=== PATIENT | male | born 1980 | race Caucasian/White ===

== ENCOUNTER → 2017-07-31 | Outpatient (CLI) | payer BC ==
--- NOTE | 2017-07-31 10:57 | DIAGNOSTIC IMAGING REPORT ---
R FOOT MIN 3 VIEWS ROUTINE HISTORY: 36 years-old Male M79.671,PAIN IN RIGHT FOOT acute right-sided foot pain, most pronounced laterally for 3 days. No reported trauma. COMPARISON: None available. TECHNIQUE: 3 views of the right foot. FINDINGS: There is mild forefoot soft tissue swelling both medially and laterally. Minimal marginal spurring is noted at the first MTP joint and also involving the hallux sesamoids with the adjacent metatarsal head. No acute fracture or dislocation is identified. No stress fracture. No opaque foreign body. IMPRESSION: 1. Mild forefoot soft tissue swelling without acute bony abnormality identified. 2. Minimal degenerative changes of the first MTP joint. The above report was generated using voice recognition software. It may contain grammatical, syntax or spelling errors. Electronically signed by: Jim Obando M.D. 07/31/2017 10:56 AM Dictated Date/Time: 07/31/2017 10:54 AM
== END | disposition home or self-care (01) ==
LOC: C.RAD 10:33
PROVIDERS: ATTEND Nurse Practitioner
DX: M79.671 Pain in right foot (principal)

== ENCOUNTER 2021-04-07 14:16 | Observation (INO) ==
--- NOTE | 2021-04-07 15:16 | XRay Report ---
XR chest 1V portable CLINICAL HISTORY: Atypical chest pain COMPARISON STUDY: No previous studies for comparison. FINDINGS: The cardiac and mediastinal contours are normal. There is no evidence of focal pulmonary co nsolidation. There is no evidence of failure. No pleural effusions are visualized.[ IMPRESSION: No active disease in the chest. ACT 112: Negative or not required by law. Electronically signed by: Abelino Ríos M.D. 04/07/2021 3:14 PM
--- NOTE | 2021-04-07 15:18 | Electrocardiogram Report ---
Test Reason : Blood Pressure : / mmHG Vent. Rate : 100 BPM Atrial Rate : 100 BPM P-R Int : 150 ms QRS Dur : 100 ms QT Int : 360 ms P-R-T Axes : 071 069 -04 degrees QTc Int : 464 ms Normal sinus rhythm Left atrial enlargement ST depression in Anterior leads , consider ischemia Abnormal ECG No previous ECGs available Confirmed by Rory Carr ([id number]) on 04/07/2021 3:18:10 PM Referred By: Confirmed By:Rory Carr
[2021-04-07] MEDS ORDERED: SODIUM CHLORIDE 0.9% 1000ML 1,000 ML IV ONE (15:20)
--- NOTE | 2021-04-07 15:24 | Emergency Department Note ---
Impression & Plan Paresthesias, Right calf pain, Abnormal EKG, Hypokalemia, Breath shortness ED Provider Note NAME: ISSA FINNEY AGE: 40 SEX: M : 1980 ARRIVES VIA: Walk-In INFORMANT: Patient ED PROVIDER(S): Darrius Parry DO CHIEF COMPLAINT: weak HPI: Patient is a 40-year-old male who presents to the ER for shortness of breath, paresthesias in the upper and lower extremities and weakness. He has been having pain in his right lower extremity which has been present for the past 2 to 3 weeks as he recently started running again. He notes that today he was driving he became short of breath. This lasted for a short period of time about a minute and then resolved. He had paresthesias in the bilateral upper and lower extremities. He has had an ultrasound/duplex of the right lower extremity which was negative as well as ABIs which was unremarkable. He notes h e felt cool and clammy throughout. He denies all other complaints at this time. He denies any chest pain or heaviness. Shortness of breath has completely resolved. Patient denies diabetes, hypertension, hyperlipidemia, CAD, history of sudden at a young age, and smoking. Patient denies swelling of calves, recent trips, history of immobilization or recent surgery, prior history of DVT, hemoptysis, and history of malignancy. ROS: See above HPI for pertinent positives & negatives. A total of 10 systems reviewed and were otherwise negative. PAST MEDICAL HISTORY:See Below PAST SURGICAL HISTORY:See Below FAMILY HISTORY:See Below SOCIAL HISTORY:See Below HOME MEDICATIONS:See Below ALLERGIES:See Below VITALS:See Below PHYSICAL EXAMINATION: GENERAL: Sitting up in bed, alert, well appearing, well nourished, no distress, non-toxic EYE EXAM: normal conjunctiva. OROPHARYNX: no exudate, no erythema, lips, buccal mucosa, and tongue normal and mucous membranes are moist NECK: supple, no nuchal rigidity, no adenopathy, non-tender LUNGS: Clear to auscultation. Normal chest wall mechanics HEART: no murmurs, S1 normal and S2 normal ABDOMEN: abdomen soft, non-tender, normo-active bowel sounds, no masses, no rebound or guarding. BACK: Back is symmetrical on inspection and there is no deformity, no midline tenderness, no CVA tenderness. SKIN: no rashes and no bruising UPPER EXTREMITIES: upper extremities are grossly normal. LOWER EXTREMITIES: No pitting edema. Calves are equal bilateral NEURO EXAM: Normal sensorium, cranial nerves II-XII grossly intact, normal speech, no gross weakness of arms, no gross weakness of legs. MEDICAL DECISION MAKING: Patient is a 40-year-old male who presents the ER for shortness of breath associate with paresthesias. IV was established blood work was obtained. He is found to be slightly hypertensive and mildly tachycardic. Labs show no significant leukocytosis or anemia. D-dimer was negative and will not be pu rsued in the low risk patient. BMP with mild hypokalemia slightly elevated chloride. LFTs bilirubin was unremarkable. Lipase is normal. Troponin was negative. Covid was negative. Chest x-ray unremarkable. EKG showed diffuse ST wave changes. Discussed with cardiology and unable to stress tonight. Following this discussed with hospitalist for observation. Triage Nursing notes reviewed. Limited review of prior medical records performed Vital Signs: reviewed and remarkable for tachy Differential diagnosis: Differential diagnoses includes but is not limited to pneumonia, bronchitis, COPD/Asthma exacerbation, pneumothorax, pulmonary embolism, congestive heart failure, acute coronary syndrome ER treatment provided: See below Diagnostics interpreted by me: ECG: Sinus tachycardia rate of 100 Normal axis No PVCs ST depressions in V3 through V6 as well as nonspecific ST wave changes in the inferior leads QTC 464 Cardiac Monitoring: An order was placed for continuous cardiac monitoring. The monitor shows a rate of 95 with sinus rhythm. Laboratory studies: As stated above and show below. Imaging studies: Portable AP upright 1 view of the chest shows no focal infiltrate or pne umothorax Consultation(s): Discussed with Tommy Carr who was unable to stress him and recommended admission to the hospitalist Discussed with Dr. Ayon for further evaluation Procedures: none Critical Care: None Past Med/Surg History Surgical History (Updated 04/02/21 @ 12:02 by Shruti Yang) No history of previous surgery Family History (Updated 04/02/21 @ 12:03 by Shruti Yang) Uncle FH: kidney cancer Grandfather (Maternal) Prostate cancer Other Colorectal cancer Denies family history of Ovarian cancer Breast cancer Social History (Updated 04/02/21 @ 12:04 by Shruti Yang) Smoking Status: Never smoker Hx Alcohol Use: No Hx Substance Use: No Preferred Language: Macedonian Visual Impairment: No Limitations Hearing Ability: Normal marital status: Single current occupational status: employed Feels Safe at Home: Yes Dental Care, Regularly: Yes Physical Activity Frequency: 3-4 Times per Week Seatbelt Use: always Allergies Allergies Allergy/AdvReac Type Severity Reaction Status Date / Time No Known Allergies Allergy Unverified 04/07/21 15:25 Home Meds Home Medications Medication Instructions Recorded Confirmed No Known Home Medications 04/02/21 04/07/21 Results & Data (ED) Vital Signs Vital Signs - 24 hr 04/07/21 14:23 04/07/21 17:53 Temperature 36.2 C L Temperature Source Temporal Artery Scan Pulse Rate 106 H Pulse Rate [Left Apical] 93 H Pulse Rhythm Regular Pulse Rhythm [Left Apical] Regular Pulse Strength Normal Pulse Strength [Left Apical] Normal Respiratory Rate 20 21 Respiratory Effort / Characteristics Non-Labored Spontaneous Non-Labored Spontaneous Respiratory Depth Normal Normal Respiratory Pattern Regular Regular Blood Pressure 152/93 H Blood Pressure [Right Arm] 154/91 H Blood Pressure Mean 112 Blood Pressure Mean [Right Arm] 112 Blood Pressure Position Sitting Blood Pressure Position [Right Arm] Sitting Pulse Oximetry 99 97 Oxygen Delivery Method Room Air Room Air Sepsis Recent Fever Within 48 Hours No Sepsis New/Unexplained Change in Mental Status No Sepsis Action Taken by Nursing No Action Required Laboratory Data Result diagrams: 04/07/21 15:19 04/07/21 15:19 Lab Results 04/07/21 04/07/21 04/07/21 Range/Units 15:19 15:19 15:19 WBC 6.03 (4.8-10.8) K/uL RBC 5.34 (4.7-6.1) M/uL Hgb 15.5 (14.0-18.0) g/dL Hct 44.2 (42-52) % MCV 82.8 (80-100) fL MCH 29.0 (25-34) pg MCHC 35.1 (32-36) g/dL RDW Std Deviation 37.6 (36.4-46.3) fL RDW Coeff of Mehul 12.6 (11.5-14.5) % Plt Count 211 (130-400) K/uL MPV 9.7 (7.4-10.4) fL Immature Gran % (Auto) 0.3 % Neut % (Auto) 67.2 % Lymph % (Auto) 26.2 % [place] % (Auto) 5.1 % Eos % (Auto) 1.0 % Baso % (Auto) 0.2 % Neut # (Auto) 4.05 (1.4-6.5) K/uL Lymph # (Auto) 1.58 (1.2-3.4) K/uL [place] # (Auto) 0.31 (0.11-0.59) K/uL Eos # (Auto) 0.06 (0-0.5) K/uL Baso # (Auto) 0.01 (0-0.2) K/uL Immature Gran # (Auto) 0.02 (0.00-0.02) K/uL APTT 26.3 (21.0-31.0) Seconds PTT Ratio 1.0 D-Dimer < 190 (0-500) ug/L FEU Sodium 140 (136-145) mmol/L Potassium 3.3 L (3.5-5.1) mmol/L Chloride 108 H (98-107) mmol/L Carbon Dioxide 28 (21-32) mmol/L Anion Gap 4.0 (3-11) BUN 11 (7-18) mg/dl Creatinine 0.83 (0.6-1.4) mg/dl Est Cr Clr Drug Dosing 132.8 ml/min Est GFR ( Amer) 126.7 ml/min Est GFR (Non-Af Amer) 109.3 ml/min BUN/Creatinine Ratio 12.8 (10-20) Glucose 91 (70-99) mg/dl Calcium 8.4 L (8.5-10.1) mg/dl Total Bilirubin 0.6 (0.2-1) mg/dl AST 24 (15-37) U/L ALT 84 H (12-78) U/L Alkaline Phosphatase 101 (45-117) U/L Troponin I < 0.015 (0-0.045) ng/ml Total Protein 7.5 (6.4-8.2) gm/dl Albumin 4.3 (3.4-5.0) gm/dl Globulin 3.2 (2.5-4.0) gm/dl Albumin/Globulin Ratio 1.3 (0.9-2) Lipase 97 (73-393) U/L COVID-19 Eval Order SARS-CoV-2 (PCR) (Negative) 04/07/21 04/07/21 Range/Units 17:05 17:05 WBC (4.8-10.8) K/uL RBC (4.7-6.1) M/uL Hgb (14.0-18.0) g/dL Hct (42-52) % MCV (80-100) fL MCH (25-34) pg MCHC (32-36) g/dL RDW Std Deviation (36.4-46.3) fL RDW Coeff of Mehul (11.5-14.5) % Plt Count (130-400) K/uL MPV (7.4-10.4) fL Immature Gran % (Auto) % Neut % (Auto) % Lymph % (Auto) % [place] % (Auto) % Eos % (Auto) % Baso % (Auto) % Neut # (Auto) (1.4-6.5) K/uL Lymph # (Auto) (1.2-3.4) K/uL [place] # (Auto) (0.11-0.59) K/uL Eos # (Auto) (0-0.5) K/uL Baso # (Auto) (0-0.2) K/uL Immature Gran # (Auto) (0.00-0.02) K/uL APTT (21.0-31.0) Seconds PTT Ratio D-Dimer (0-500) ug/L FEU Sodium (136-145) mmol/L Potassium (3.5-5.1) mmol/L Chloride (98-107) mmol/L Carbon Dioxide (21-32) mmol/L Anion Gap (3-11) BUN (7-18) mg/dl Creatinine (0.6-1.4) mg/dl Est Cr Clr Drug Dosing ml/min Est GFR ( Amer) ml/min Est GFR (Non-Af Amer) ml/min BUN/Creatinine Ratio (10-20) Glucose (70-99) mg/dl Calcium (8.5-10.1) mg/dl Total Bilirubin (0.2-1) mg/dl AST (15-37) U/L ALT (12-78) U/L Alkaline Phosphatase (45-117) U/L Troponin I (0-0.045) ng/ml Total Protein (6.4-8.2) gm/dl Albumin (3.4-5.0) gm/dl Globulin (2.5-4.0) gm/dl Albumin/Globulin Ratio (0.9-2) Lipase (73-393) U/L COVID-19 Eval Order Covid19 at [facility] SARS-CoV-2 (PCR) NEGATIVE (Negative) Administered Medications Discontinued Medications Sodium Chloride (Nss 1000ml) 1,000 mls @ 999 mls/hr IV .Q1H1M ONE Stop: 04/07/21 16:20 Last Infusion: 04/07/21 16:58 Dose: 0 mls/hr Documented by: [id number] Admin: 04/07/21 15:49 Dose: 999 mls/hr Documented by: [id number] Potassium Chloride (Potassium Chloride Crtab 20 Meq Tabcr) 40 meq PO NOW STA Stop: 04/07/21 17:28 Last Admin: 04/07/21 17:51 Dose: 40 meq Documented by: [id number] Imaging Data Radiologist's Impression: Chest X-Ray 04/07/21 14:59 XR chest 1V portable CLINICAL HISTORY: Atypical chest pain COMPARISON STUDY: No previous studies for comparison. FINDINGS: The cardiac and mediastinal contours are normal. There is no evidence of focal pulmonary consolidation. There is no evidence of failure. No pleural effusions are visualized.[ IMPRESSION: No active disease in the chest. ACT 112: Negative or not required by law. Electronically signed by: Abelino Ríos M.D. 04/07/2021 3:14 PM Discharge Plan Visit Data Chief Complaint: Swelling/Edema to Extremity Stated Complaint: POSSIBLE BLOOD CLOT ED Provider: Darrius Parry Discharge Problem: Paresthesias, Right calf pain, Abnormal EKG, Hypokalemia, Breath shortness Forms Stand Alone Forms: My [facility] Prescriptions Prescriptions: No Action No Known Home Medications RF: 0
[2021-04-07 16:01] LABS: Basophils # (auto) 0.01 K/uL (0-0.2); Basophils % (auto) 0.2 %; Eosinophils # (auto) 0.06 K/uL (0-0.5); Hematocrit (blood only) 44.2 % (42-52); Hemoglobin 15.5 g/dL (14.0-18.0); Immature Granulocytes # (auto) 0.02 K/uL (0.00-0.02); Immature Granulocytes % (auto) 0.3 %; Lymphocytes # (auto) 1.58 K/uL (1.2-3.4); Lymphocytes % (auto) 26.2 %; Mean Corpuscular Hgb Conc 35.1 g/dL (32-36); Mean Corpuscular Volume 82.8 fL (80-100); Mean Platelet Volume 9.7 fL (7.4-10.4); Monocytes # (auto) 0.31 K/uL (0.11-0.59); Monocytes % (auto) 5.1 %; Neutrophils # (auto) 4.05 K/uL (1.4-6.5); Neutrophils % (auto) 67.2 %; Platelet Count 211 K/uL (130-400); RDW Coefficient of Variation 12.6 % (11.5-14.5); RDW Standard Deviation 37.6 fL (36.4-46.3); Red Blood Count 5.34 M/uL (4.7-6.1); White Blood Count 6.03 K/uL (4.8-10.8)
[2021-04-07 16:10] LABS: D Dimer < 190 ug/L FEU (0-500); Partial Thromboplastin Time 26.3 Seconds (21.0-31.0)
[2021-04-07 16:14] LABS: Alanine Aminotransferase 84 U/L (12-78); Albumin Level 4.3 gm/dl (3.4-5.0); Aspartate Aminotransferase 24 U/L (15-37); BUN Creatinine Ratio 12.8 (10-20); Blood Urea Nitrogen 11 mg/dl (7-18); Calcium 8.4 mg/dl (8.5-10.1); Carbon Dioxide 28 mmol/L (21-32); Chloride 108 mmol/L (98-107); Creatinine Clr Calc Pharmacy 132.8 ml/min; Est GFR (African American) 126.7 ml/min; Est GFR (Non-African American) 109.3 ml/min; Glucose 91 mg/dl (70-99); Lipase 97 U/L (73-393); Potassium 3.3 mmol/L (3.5-5.1); Sodium 140 mmol/L (136-145)
[2021-04-07 16:20] LABS: Albumin Globulin Ratio 1.3 (0.9-2); Alkaline Phosphatase 101 U/L (45-117); Bilirubin,Total 0.6 mg/dl (0.2-1); Globulin 3.2 gm/dl (2.5-4.0); Total Protein 7.5 gm/dl (6.4-8.2); Troponin I < 0.015 ng/ml (0-0.045)
[2021-04-07] MEDS ORDERED: POTASSIUM CHLORIDE CRTAB 20 MEQ TABCR PO STA (17:27)
--- NOTE | 2021-04-07 17:38 | History & Physical Report ---
Date of Service April 07, 2021 Assessment & Plan (1) Abnormal EKG: EKG with ST depressions V3-V5. The patient will be admitted to telemetry for serial cardiac enzymes, serial EKG's, cardiac rhythm monitoring and a 2-D echocardiogram with Dopplers. Aspirin 81 mg daily Vital signs with pulse 106 and blood pressure 152/93. If persists, will start beta-ivet, metoprolol tartrate 25 mg p.o. twice daily. Review outpatient laboratories and studies Consult cardiology Present on Admission?: Yes (2) Hypokalemia: Place with Klor-Con 40 mEq p.o. May explain abnormal body sensations is experiencing Present on Admission?: Yes (3) Paresthesias: Follow for symptom recovery as replace potassium Present on Admission?: Yes History of Present Illness Chief Complaint: 9 the patient presents to the emergency department with a sensation of of tingling and abnormal sensation over his body into his extremities that happened as he was driving home today. Primary Care Provider: Freddy Ortega MD The patient is a 40-year-old male with no significant past medical history who presents to the emergency department with complaint of right calf pain that began about 3 weeks ago when he resumed exercise, took off her weight, and then it recurred again. He had venous Dopplers performed recently as outpatient setting which were negative. He reports having outpatient laboratories done as well today, possibly home he developed above symptoms and presents to the ED for assessment. He reports he has gained 20 pounds over the past year due to state- mandated COVID-19 inactivity. He did have his first vaccination 1/2 months ago and a second was collapsing. He himself has not had COVID-19 infection Allergies Allergy/AdvReac Type Severity Reaction Status Date / Time No Known Allergies Allergy Unverified 04/07/21 15:25 Home Medications Medication Instructions Recorded Confirmed Type No Known Home Medications 04/02/21 04/07/21 History Past Med/Surg History Surgical History (Updated 04/02/21 @ 12:02 by Shruti Yang) No history of previous surgery Family History (Updated 04/02/21 @ 12:03 by Shruti Yang) Uncle FH: kidney cancer Grandfather (Maternal) Prostate cancer Other Colorectal cancer Denies family history of Ovarian cancer Breast cancer Social History (Updated 05/28/21 @ 12:04 by Shruti Seals Smoking Status: Never smoker Hx Alcohol Use: No Hx Substance Use: No Preferred Language: Taiwanese Visual Impairment: No Limitations Hearing Ability: Normal marital status: Single current occupational status: employed Feels Safe at Home: Yes Dental Care, Regularly: Yes Physical Activity Frequency: 3-4 Times per Week Seatbelt Use: always Review of Systems Review of Systems: The patient denies chest pain, palpitations, shortness of breath, dyspnea on exertion, cough, lower extremity swelling, sore throat, fevers, chills, sweats, nausea, vomiting, diarrhea , constipation, abdominal pain, pelvic pain, blood in urine or stool, dysuria, urinary frequency or urgency, lightheadedness, dizziness, headache, memory loss, loss of consciousness, rash, abnormal bruising or bleeding, imbalance, focal or generalized weakness, generalized arthralgias or myalgias, back or neck pain, or night sweats. The review of systems is otherwise negative other than for that already noted above, and at least 10 systems have been reviewed. Physical Exam Physical Exam: The patient is awake, alert and oriented 3, well developed and well nourished, normocephalic and atraumatic, lying in bed and in no acute distress. HEENT--PERRL, EOMI, mucous membranes and oropharynx normal Neck--supple. No JVD. No bruits. Thyroid normal, trachea midline, no adenopathy. Heart--normal S1 and S2. No murmurs, rubs or gallops. Lungs--clear bilaterally, no respiratory distress, no accessory muscle use. Abdomen--normal bowel sounds and soft. Nontender. Nondistended, no hernias or masses, no organomegaly. Extremities--no cyanosis or clubbing. No edema. Dermatologic--normal skin turgor, normal color, no abnormal lymph nodes, no rash. Neurologic--cranial nerves II through XII grossly intact. Rheumatologic--normal range of motion. Psychiatric--normal affect. Results & Data Results & Data ([facility]) Vital Signs (Past 12 Hours) Vital Signs Temp Pulse Resp BP Pulse Ox 04/07/21 14:23 97.2 F L 106 H 20 152/93 H 99 Laboratory Results Laboratory Results WBC 6.03 K/uL (4.8-10.8) 04/07/21 15:19 RBC 5.34 M/uL (4.7-6.1) 04/07/21 15:19 Hgb 15.5 g/dL (14.0-18.0) 04/07/21 15:19 Hct 44.2 % (42-52) 04/07/21 15:19 MCV 82.8 fL (80-100) 04/07/21 15:19 MCH 29.0 pg (25-34) 04/07/21 15:19 MCHC 35.1 g/dL (32-36) 04/07/21 15:19 RDW Std Deviation 37.6 fL (36.4-46.3) 04/07/21 15:19 RDW Coeff of Mehul 12.6 % (11.5-14.5) 04/07/21 15:19 Plt Count 211 K/uL (130-400) 04/07/21 15:19 MPV 9.7 fL (7.4-10.4) 04/07/21 15:19 Immature Gran % (Auto) 0.3 % 04/07/21 15:19 Neut % (Auto) 67.2 % 04/07/21 15:19 Lymph % (Auto) 26.2 % 04/07/21 15:19 [place] % (Auto) 5.1 % 04/07/21 15:19 Eos % (Auto) 1.0 % 04/07/21 15:19 Baso % (Auto) 0.2 % 04/07/21 15:19 Neut # (Auto) 4.05 K/uL (1.4-6.5) 04/07/21 15:19 Lymph # (Auto) 1.58 K/uL (1.2-3.4) 04/07/21 15:19 [place] # (Auto) 0.31 K/uL (0.11-0.59) 04/07/21 15:19 Eos # (Auto) 0.06 K/uL (0-0.5) 04/07/21 15:19 Baso # (Auto) 0.01 K/uL (0-0.2) 04/07/21 15:19 Immature Gran # (Auto) 0.02 K/uL (0.00-0.02) 04/07/21 15:19 APTT 26.3 Seconds (21.0-31.0) 04/07/21 15:19 PTT Ratio 1.0 04/07/21 15:19 D-Dimer < 190 ug/L FEU (0-500) 04/07/21 15:19 Sodium 140 mmol/L (136-145) 04/07/21 15:19 Potassium 3.3 mmol/L (3.5-5.1) L 04/07/21 15:19 Chloride 108 mmol/L (98-107) H 04/07/21 15:19 Carbon Dioxide 28 mmol/L (21-32) 04/07/21 15:19 Anion Gap 4.0 (3-11) 04/07/21 15:19 BUN 11 mg/dl (7-18) 04/07/21 15:19 Creatinine 0.83 mg/dl (0.6-1.4) 04/07/21 15:19 Est Cr Clr Drug Dosing 132.8 ml/min 04/07/21 15:19 Est GFR ( Amer) 126.7 ml/min 04/07/21 15:19 Est GFR (Non-Af Amer) 109.3 ml/min 04/07/21 15:19 BUN/Creatinine Ratio 12.8 (10-20) 04/07/21 15:19 Glucose 91 mg/dl (70-99) 04/07/21 15:19 Calcium 8.4 mg/dl (8.5-10.1) L 04/07/21 15:19 Total Bilirubin 0.6 mg/dl (0.2-1) 04/07/21 15:19 AST 24 U/L (15-37) 04/07/21 15:19 ALT 84 U/L (12-78) H 04/07/21 15:19 Alkaline Phosphatase 101 U/L (45-117) 04/07/21 15:19 Troponin I < 0.015 ng/ml (0-0.045) 04/07/21 15:19 Total Protein 7.5 gm/dl (6.4-8.2) 04/07/21 15:19 Albumin 4.3 gm/dl (3.4-5.0) 04/07/21 15:19 Globulin 3.2 gm/dl (2.5-4.0) 04/07/21 15:19 Albumin/Globulin Ratio 1.3 (0.9-2) 04/07/21 15:19 Lipase 97 U/L (73-393) 04/07/21 15:19 COVID-19 Eval [address] at [facility] 04/07/21 17:05 Impressions Chest X-Ray 04/07/21 14:59 XR chest 1V portable CLINICAL HISTORY: Atypical chest pain COMPARISON STUDY: No previous studies for comparison. FINDINGS: The cardiac and mediastinal contours are normal. There is no evidence of focal pulmonary consolidation. There is no evidence of failure. No pleural effusions are visualized.[ IMPRESSION: No active disease in the chest. ACT 112: Negative or not required by law. Electronically signed by: Abelino Ríos M.D. 04/07/2021 3:14 PM Code Status & VTE Plan Code Status Full code VTE Prophylaxis Plan VTE Prophylaxis will be ordered: Yes PG Care Time/CCT Total # of Minutes Spent Total Time Spent with Patient: Total time spent is greater than 50% in coordination of care (as documented) at patient's floor/unit and/or counseling patient: Coding Level of Care Code 84975 OBS Care - Level 3 Diagnoses Abnormal EKG R94.31 Hypokalemia E87.6 Paresthesias R20.2
[2021-04-07] MEDS ORDERED: ACETAMINOPHEN 325 MG TAB PO PRN (20:26)
[2021-04-07] MEDS ORDERED: ONDANSETRON INJ 2 MG/ML 2 ML VIAL IV PRN (20:26)
[2021-04-07] MEDS: HEPARIN SOD 5,000 UNIT/0.5 ML VIAL SQ SCH (22:35)
[2021-04-08 08:06] LABS: Basophils # (auto) 0.02 K/uL (0-0.2); Basophils % (auto) 0.4 %; Eosinophils # (auto) 0.08 K/uL (0-0.5); Eosinophils % (auto) 1.6 %; Hematocrit (blood only) 44.8 % (42-52); Hemoglobin 15.8 g/dL (14.0-18.0); Immature Granulocytes # (auto) 0.01 K/uL (0.00-0.02); Immature Granulocytes % (auto) 0.2 %; Lymphocytes # (auto) 1.44 K/uL (1.2-3.4); Lymphocytes % (auto) 28.2 %; Mean Corpuscular Hemoglobin 29.3 pg (25-34); Mean Corpuscular Hgb Conc 35.3 g/dL (32-36); Mean Corpuscular Volume 83.1 fL (80-100); Mean Platelet Volume 9.7 fL (7.4-10.4); Monocytes # (auto) 0.35 K/uL (0.11-0.59); Monocytes % (auto) 6.8 %; Neutrophils # (auto) 3.21 K/uL (1.4-6.5); Neutrophils % (auto) 62.8 %; Platelet Count 218 K/uL (130-400); RDW Coefficient of Variation 12.6 % (11.5-14.5); RDW Standard Deviation 37.8 fL (36.4-46.3); Red Blood Count 5.39 M/uL (4.7-6.1); White Blood Count 5.11 K/uL (4.8-10.8)
[2021-04-08 08:39] LABS: BUN Creatinine Ratio 12.8 (10-20); Calcium 9.1 mg/dl (8.5-10.1); Creatinine Clr Calc Pharmacy 129.3 ml/min; Est GFR (African American) 125.4 ml/min; Est GFR (Non-African American) 108.2 ml/min; Potassium 3.7 mmol/L (3.5-5.1)
[2021-04-08 08:42] LABS: Albumin Globulin Ratio 1.3 (0.9-2); Bilirubin,Total 0.5 mg/dl (0.2-1); Globulin 3.2 gm/dl (2.5-4.0); Total Protein 7.2 gm/dl (6.4-8.2)
[2021-04-08] MEDS ORDERED: ASPIRIN 81 MG ECTAB PO SCH (09:00)
--- NOTE | 2021-04-08 09:06 | Cardiology Consultation ---
Date of Consultation April 08, 2021 Assessment & Plan (1) Abnormal EKG: Patient presented yesterday with transient shortness of breath lasting about 20 seconds as well as numbness/cold sensation throughout his body with some paresthesias. EKG on arrival to the ER showed ST depression in anterior leads, which have resolved with repeat study today. The etiology of his symptoms is unclear, but the EKG abnormality could perhaps be due to his hypokalemia. It is reassuring this his cardiac enzymes have been undetectable. Will plan a stress echocardiogram today in order to more definitively rule out myocardial ischemia. Further recommendations pending the results of the study. Patient was discussed with Dr. Carr, and the plan was made in collaboration with him. Supervising Physician Co-Signing Physician Notes Patient seen and interviewed. Agree with above evaluation by MALIK Juares. Patient underwent stress echocardiogram currently, completed 10 minutes on a Randall protocol achieving 96% maximum predicted heart rate with no symptoms, diagnostic ECG changes, or echocardiographic abnormalities. Thus, no evidence of occlusive coronary disease, no further work-up necessary for CAD at this time. However, the etiology of his initial symptoms remains uncertain. It was a singular event and lasted only 20 seconds. Although panic attack is in the differential diagnosis, the brevity of the event makes this less likely. The possibility of a paroxysmal SVT or other dysrhythmia is not yet excluded. In the context of a structurally normal heart, absence of ectopy or rhythm disturbances on telemetry overnight, and negative stress study, the likelihood of an SVT is not high and further monitoring may be low yield. However, should he note any recurrent symptoms, the possibility of SVT should be further evaluated. Did recommend that he obtain a heart rate nirmal on his cell phone and take a screen shot. If he has any recurrent significant symptoms, would then obtain MCOT monitor for 2 to 4 weeks, and if necessary a loop recorder if no symptoms occurred during MCOT monitoring. Again, given their low yield in this context, no immediate need for monitoring (other than via cell phone nirmal), but any recurrent symptoms should prompt reevaluation. Did discuss the presence of hypokalemia on admission. He drinks "a pot of coffee" daily and did not have lunch yesterday. Recommended increased intake of potassium rich food items and decrease in coffee intake (since it has a diuretic effect). Likely the hypokalemia contributed to his abnormal ECG findings initially. Okay for discharge home. Thank you for this consultation. History of Present Illness Reason for Consultation: Abnormal EKG Requesting Physician: Dr. Umana History of Present Illness Mr. Mcdaniel is a 40-year-old male with no significant past medical history who was admitted yesterday in the setting of transient shortness of breath, paresthesias, and abnormal EKG. He states that he was very inactive over the last year due to Covid and gained about 20 lbs. He started jogging about 3 weeks ago to get back in shape. He then developed right calf pain while jogging and had to take a break for a few days for his leg to recover. He started jogging again and the right leg pain recurred in his lower leg as well as upper leg. He also noted swelling in his right ankle. He was seen in his PCP's office late last week for the leg pain and was ordered a venous duplex, which was negative for DVT. He was then arranged TRUMAN's yesterday, which were also normal. After the test yesterday, he went to his office on [facility] to work. He was then driving home later in the day around 4 pm when he developed a coldness/numbness throughout his body as well as paresthesias. He also felt short of breath and lightheaded for about 20 seconds. He ended up driving back to the hospital and went to the ER for further evaluation. He has had no further shortness of breath, but continues to note episodes of coldness/numbness and paresthesias, which last about a minute or so in duration. He denies any chest discomfort or other anginal type symptoms. He denies orthopnea or PND. His right ankle edema resolved after about a day, and he currently denies any lower extremity edema. He denies palpitations. He has had no syncopal events. He denies abnormal bleeding such as melena, hematochezia, or hematuria. His EKG on arrival to the ER yesterday showed normal sinus rhythm with ST depression in anterior leads. Repeat EKG today shows normal sinus rhythm with sinus arrhythmia and no ST-T wave abnormality. Cardiac enzymes have been negative x3. D-dimer was also negative. Potassium was a little low at 3.3, which has been repleted. Chest x-ray shows no active disease in the chest. Family history: No premature CAD. Social history: He is not . No children. He works for [employer]. No smoking. He drinks about 2-3 alcoholic beverages per week. Allergies Allergy/AdvReac Type Severity Reaction Status Date / Time No Known Allergies Allergy Unverified 04/07/21 15:25 Home Medications Medication Instructions Recorded Confirmed Type No Known Home Medications 04/02/21 04/07/21 History Patient History Surgical History (Updated 04/02/21 @ 12:02 by Shruti Yang) No history of previous surgery Family History (Updated 04/02/21 @ 12:03 by Shruti Yang) FH: kidney cancer Uncle Prostate cancer Grandfather (Maternal) Colorectal cancer Denies family history of Ovarian cancer Breast cancer Social History (Updated 04/02/21 @ 12:04 by Shruti Yang) Smoking Status: Never smoker Second Hand Exposure: No; Hx Alcohol Use: Yes Alcohol type: beer and hard liquor Hx Substance Use: No Preferred Language: [place] Islander Communication Ability: Effective Visual Impairment: No Limitations Hearing Ability: Normal Beliefs That Will Affect Care: None marital status: Single Current Living Situation: Alone current occupational status: employed Feels Safe at Home: Yes Dental Care, Regularly: Yes Physical Activity Frequency: 3-4 Times per Week Seatbelt Use: always Assistive Devices: None Review of Systems Review of Systems: All systems reviewed & are unremarkable except as noted in Subjective Physical Exam Physical Exam: Constitutional: Alert, oriented, in no acute distress HEENT: Head is atraumatic and normocephalic. EOMs intact. Sclera non-icteric. Face is symmetric. No perioral cyanosis. Mucous membranes moist Neck: Supple, no JVD Pulmonary: Normal respiratory effort, clear to auscultation throughout Cardiac: Regular rate and rhythm, normal S1 and S2, no gallops, no rubs, no murmurs Extremities: No edema. No clubbing or cyanosis. Pulses 2+ and symmetric Abdomen: Normal bowel sounds, soft, non-tender, no abdominal masses palpated Skin: Normal skin color, turgor, and pigmentation. No rash or skin lesions Neurological: Oriented to person, place, and time Results & Data ([facility]) Vital Signs (Past 12 Hours) Vital Signs Temp Pulse Pulse Resp BP Pulse Ox 04/08/21 08:00 98.4 F 59 L 16 131/62 96 04/08/21 04:23 97.9 F 68 18 145/81 H 97 04/08/21 00:01 94 H 04/07/21 23:32 98.1 F 79 18 136/85 97 Diagnostic Findings Telemetry: Sinus rhythm in the 70s-90s. PG Care Time/CCT Total # of Minutes Spent Total Time Spent with Patient: Total time spent is greater than 50% in coordination of care (as documented) at patient's floor/unit and/or counseling patient: Coding Level of Care Code 02290 Inpt Consult Level 4 Diagnoses Abnormal EKG R94.31 Time Spent (min) 45
--- NOTE | 2021-04-08 09:19 | Electrocardiogram Report ---
Test Reason : Blood Pressure : / mmHG Vent. Rate : 063 BPM Atrial Rate : 063 BPM P-R Int : 154 ms QRS Dur : 100 ms QT Int : 416 ms P-R-T Axes : 067 075 050 degrees QTc Int : 425 ms Normal sinus rhythm with sinus arrhythmia Normal ECG When compared with ECG of 07-APR-2021 14:26, Vent. rate has decreased BY [address] depression in Anterior leads no longer present Confirmed by Rory Carr ([id number]) on 04/08/2021 9:19:24 AM Referred By: REFERRED SELF Confirmed By:Rory Carr
[2021-04-08] MEDS: HEPARIN SOD 5,000 UNIT/0.5 ML VIAL SQ SCH (12:55)
--- NOTE | 2021-04-08 13:41 | XCELERA ---
[id number] \\[id number]___[id number]
--- NOTE | 2021-04-08 13:46 | XCELERA ---
[id number] \\[id number]___[id number]
[2021-04-08 14:13] LABS: Lyme Ab IgG w/WB Rflx Negative (Negative); Lyme Ab IgM w/WB Rflx Negative (Negative)
[2021-04-08 14:23] LABS: C Reactive Protein 0.41 mg/dl (0-0.29); Thyroid Stimulating Hormone 2.58 uIu/ml (0.300-4.500)
--- NOTE | 2021-04-08 15:55 | Discharge Summary ---
Date of Service date of admission - April 07, 2021 date of discharge - April 08, 2021 Admission HPI Per Admitting Provider Mr. Mcdaniel is a 40-year-old male with no significant past medical history who presents with transient shortness of breath and paresthesias. He states that he was very inactive over the last year due to Covid and gained about 20 lbs. He started jogging about 3 weeks ago to get back in shape. He then developed right calf pain while jogging and had to take a break for a few days for his leg to recover. He started jogging again and the right leg pain recurred in his lower leg as well as upper leg. He also noted swelling in his right ankle. He was seen in his PCP's office late last week for the leg pain and was ordered a venous duplex, which was negative for DVT. He was then arranged TRUMAN's yesterday, which were also normal. After the test yesterday, he went to his office on [facility] to work. He was then driving home later in the day around 4 pm when he developed a coldness/numbness throughout his body as well as paresthesias. He also felt short of breath and lightheaded for about 20 seconds. He ended up driving back to the hospital and went to the ER for further evaluation. He has had no further shortness of breath, chest discomfort or other anginal type symptoms. He denies orthopnea or PND. His right ankle edema resolved after about a day, and he currently denies any lower extremity edema. He denies palpitations. He has had no syncopal events. He denies abnormal bleeding such as melena, hematochezia, or hematuria. Principal Diagnosis 1. shortness of breath - resolved; etiology uncertain; stress test negative 2. paresthesias / chills - etiology also uncertain; infectious causes not found Discharge Exam Constitutional well developed and well nourished; no acute distress and no altered mental status ENMT external ear and nose normal, oropharynx normal Respiratory normal respiratory effort, lungs clear to auscultation Cardiovascular Rate/Rhythm: regular rate and regular rhythm Heart Sounds: normal S1 and normal S2; no murmur Vessels: posterior tibial pulses present and dorsalis pedis pulses present; no JVD Extremities: no edema Chest (Breasts) Additional Comments: no reproducible chest wall tenderness to palpation Gastrointestinal (Abdomen) normal bowel sounds, soft, nontender, no hepatosplenomegaly Musculoskeletal no cyanosis or clubbing, extremities motor strength 5/5 Skin no rashes, warm and dry Neurologic moves all extremities; no focal motor deficits Psychiatric Orientation: alert and oriented x 3 Lymphatic no cervical lymphadenopathy Discharge Data Allergies Allergy/AdvReac Type Severity Reaction Status Date / Time No Known Allergies Allergy Unverified 04/15/21 16:12 Consultations Cardiology - Rory Carr MD Procedures Performed 1. echocardiogram - normal EF of 55-60%, no regional wall motion abnormalities, normal valve function, normal pericardium. 2. exercise stress echocardiogram - no inducible areas of ischemia; normal stress echo. Above average exercise capacity. Achieved 96% of maximum age- predicted heart rate. Ordered Studies Chest X-Ray 04/07/21 14:59 XR chest 1V portable CLINICAL HISTORY: Atypical chest pain COMPARISON STUDY: No previous studies for comparison. FINDINGS: The cardiac and mediastinal contours are normal. There is no evidence of focal pulmonary consolidation. There is no evidence of failure. No pleural effusions are visualized.[ IMPRESSION: No active disease in the chest. ACT 112: Negative or not required by law. Electronically signed by: Abelino Ríos M.D. 04/07/2021 3:14 PM Hospital Course (1) Abnormal EKG: Initial EKG at time of presentation to the hospital showed mild ST segment changes in the anterior leads. These ST changes resolved with correction of his mild hypokalemia. Troponins were negative x 3. Telemetry was normal throughout his brief stay. He was seen in consult by [facility] Card[facility]. Exercise stress echocardiogram was recommended. Patient underwent such without incident. He had a normal 2D echo at baseline, and with stress there were no inducible wall motion abnormalities to suggest ischemia. (2) Hypokalemia: Replaced and normal prior to discharge. Magnesium and calcium were both normal. (3) Paresthesias: Exact etiology was uncertain. Low potassium can certainly cause muscle irritability and perhaps paresthesias but his hypokalemia was only mild (3.3). Vitamin b12 level was normal. Magnesium level was normal. TSH was normal. Lyme screen was negative. Sed rate/crp were normal. COVID testing was negative. Some of the features of his paresthesias suggested that perhaps he was in fact h aving rigors/chills. [place] he also underwent anaplasmosis DNA testing. Patient was counseled at discharge that if the paresthesias (or rigors/chills) persisted, if he developed fever, or if he had any other flu-like symptoms after discharge to start a course of doxycycline to cover for the possibility of tick-borne infection. A 14-day course of doxycycline was prescribed at discharge. (4) Shortness of breath: CXR normal. 2D echocardiogram normal. Exercise stress echocardiogram normal. COVID testing negative. D-dimer was negative. Etiology? Patient had normal O2 sats during his stay. Lung exam was normal. If the shortness of breath persists consider CTA chest (even despite the normal d-dimer). (5) Elevated blood pressure reading without diagnosis of hypertension: Systolic readings were 130s to 150s. He was asked to keep a log of his home blood pressures and report these to his PCP at time of hospital follow-up. He was not prescribed medication for this. Total Time Total Time Spent Total Time Spent (In Minutes): 35 Total Time Includes: Examination of the Patient, Discharge Planning, Medication Reconciliation and Communication With Other Providers Discharge Plan Discharge Items Patient Disposition: Home - Self-Care Reason For Visit: ABNORMAL EKG, PARESTHESIAS, HYPOKALEMIA Discharge Diagnosis: 1. hypokalemia - low potassium - resolved 2. abnormal EKG - resolved with correction of low potassium; stress test NORMAL 3. paresthesias (numbness, tingling) vs chills - exact etiology uncertain 4. mild shortness of breath & chest symptoms - resolved; exercise stress echocardiogram NORMAL 5. mildly elevated blood pressure - please follow-up with Dr Ortega for this Activity: Resume your previous activity Non-emergency contact: Primary Care Provider Call non-emergency contact if: you have any medication questions, your symptoms worsen and you have a fever Follow-up/Referrals: Freddy Ortega MD [Primary Care Provider] - (see Dr Ortega early next week ) Diet: Regular Addtl Attending Provider Instructions: Mr Mcdaniel, You were admitted to the hospital for the problems listed above in "discharge diagnoses." Your blood work for the heart ("troponins") were negative/normal x 3. The stress test/echocardiogram were normal. A screening test for blood clots was negative (d-dimer). Your potassium was replaced and was normal on 04/08. Your magnesium level was normal. TSH thyroid level was normal. Inflammatory markers were normal. A muscle test called "CPK" was also normal. COVID testing was negative. Because of where your house is located and your symptoms we screened you for tick-borne infection. Lyme screening test was negative. Anaplasmosis screening test was negative, but a second test for anaplasmosis was dispatched; it will take about 1 week to come back. In addition to the above your blood pressures were mildly elevated throughout your stay. Please follow-up with Dr Ortega for this. I do not think the elevated blood pressures caused your symptoms. If your arm/leg symptoms were chills perhaps you are coming down with a viral or tick-borne illness. Please check your temperature twice a day for the next 3 days. If you note any fever > 100 degrees please start the doxycycline antibiotic and take twice daily. I will let you know if the anaplasmosis test comes back positive. Lastly, 1 single liver function test was modestly elevated. This test is the "ALT." The exact cause of the elevation is uncertain. Various types of infection (viruses, tick-borne illness, etc) can raise the ALT. Please have Dr Ortega repeat your liver tests at time of hospital follow-up. Unfortunately I cannot tell you the exact cause of all of your symptoms. Thus, please be sure to follow-up with Dr Ortega early next week. [facility] to [facility] if - * you have recurrent shortness of breath * you have recurrent chest pains * you have severe abdominal pain * any other concerns It was a pleasure to meet you and please feel better, Dr Mitchell Pending Studies at Discharge: Yes Studies:: Anaplasmosis test (tick-borne infection) Stand-Alone Forms: My [facility], Smoking Cessation Medications and DC Order Prescriptions: No Action doxycycline hyclate 100 mg tablet 100 mg PO Q12H 14 Days Qty: 28 RF: 0 Discharge Orders: Discharge Order (Routine); Ordered 04/08/21 Ordered By: Jonathan Mitchell Admission Data Admit Date/Time: 04/07/21 17:18 Attending Provider: Jonathan Mitchell Admit Provider: Ricardo Umana Primary Care Provider: Freddy Ortgea Other Providers: Rory Carr Other Interventions: Discharge Summary Assessment (RN) Last Done: 04/08/21 15:58 Coding Level of Care Code 63573 OBS Care - Discharge Diagnoses Abnormal EKG R94.31 Hypokalemia E87.6 Paresthesias R20.2 Shortness of breath R06.02 Elevated blood pressure reading without diagnosis of hypertension R03.0
== END 2021-04-08 16:25 | disposition home or self-care (01) ==
LOC: ED 14:16 → 2S 14:16 → SUATTDRO 17:18 → 2S 19:35
DX: R94.31 Abnormal electrocardiogram [ECG] [EKG]; R07.89 Other chest pain; E87.6 Hypokalemia; R06.02 Shortness of breath; R20.2 Paresthesia of skin; Z20.822 Contact with and (suspected) exposure to COVID-19